=== PATIENT | female | born 1975 | race Caucasian/White ===

== ENCOUNTER 2018-08-12 12:58 | Emergency (ER) | payer SELFPAY ==
[~2018-08-12] VITALS: Ht 167.6 cm; Wt 77.8 kg
[2018-08-12] MEDS ORDERED: TORADOL PO (13:57)
[2018-08-12 14:03] VITALS: BP 143/88
== END 2018-08-12 14:13 | disposition home or self-care (01) | DRG 566 ==
LOC: ED 12:58
DX: M77.31 Calcaneal spur, right foot (principal); F17.210 Nicotine dependence, cigarettes, uncomplicated

== ENCOUNTER 2019-01-26 19:33 | Emergency (ER) | payer SELFPAY ==
[~2019-01-26] VITALS: Ht 167.6 cm; Wt 78.2 kg
[~2019-01-26 19:33] MED LIST: TORADOL PO
[2019-01-26 20:40] LABS: HEMATOCRIT 48.5 % (37.0-47.0); HEMOGLOBIN 15.6 g/dl (12.0-16.0); IMMATURE GRANULOCYTES 0.3 % (0.0-5.0); MEAN CELL VOLUME 90.3 fL CALC (80.0-100.0); MEAN CORPUSCULAR HGB 29.1 pG CALC (26.0-32.0); MEAN CORPUSCULAR HGB CONC 32.2 g/L CALC (32.0-36.0); NEUT# 3.75 thou/uL (2.00-7.15); RED BLOOD COUNT 5.37 mill/uL (4.20-5.60); RED CELL DISTRI WIDTH 14.1 % (11.5-15.5)
[2019-01-26] MEDS ORDERED: TESSALON PER100 MG PO (21:13)
[2019-01-26 21:30] VITALS: BP 150/54
== END 2019-01-26 21:30 | disposition home or self-care (01) | DRG 153 ==
LOC: ED 19:33
PROVIDERS: Family Medicine
DX: J06.9 Acute upper respiratory infection, unspecified (principal); R05 Cough; R09.81 Nasal congestion; R50.9 Fever, unspecified; R51 Headache; J34.89 Other specified disorders of nose and nasal sinuses; F17.210 Nicotine dependence, cigarettes, uncomplicated

== ENCOUNTER 2019-06-23 12:52 | Emergency (ER) | payer SELFPAY ==
[~2019-06-23] VITALS: Ht 167.6 cm; Wt 78.8 kg
[~2019-06-23 12:52] MED LIST changes: +TESSALON PER100 MG PO
[2019-06-23] MEDS ORDERED: AMOX/K CLAV875 M1 PO (13:19)
[2019-06-23 13:30] VITALS: BP 139/79
== END 2019-06-23 13:30 | disposition home or self-care (01) | DRG 153 ==
LOC: ED 12:52
DX: J32.9 Chronic sinusitis, unspecified (principal); F17.210 Nicotine dependence, cigarettes, uncomplicated